=== PATIENT | female | born 1995 | race Two or more races ===

== ENCOUNTER 2019-01-18 23:35 | Emergency (ER) | payer OTHER ==
[~2019-01-18] VITALS: Ht 165.1 cm; Wt 76.2 kg
--- NOTE | 2019-01-18 23:40 | NUR ---
PT CHAI FROM STREET, FOUND LAYING ON FLOOR NEXT TO PUDDLE OF URINE. POSSIBLE ETOH. PT OPENS EYES TO PAINFUL STIMULI. VITAL SIGNS STABLE. SKIN WARM AND INTACT. NO ACUTE DISTRESS NOTED AT THIS TIME. PT PLACED IN GOWN AND ON MONITOR, WILL CONTINUE TO MONITOR.
[2019-01-19] LABS: BASOPHILS % (AUTO) 0.3 % (0.0-2.0); EOSINOPHILS % (AUTO) 1.1 % (0.0-6.0); HEMATOCRIT 41 % (33-45); HEMOGLOBIN 14.6 g/dL (11.5-14.8); LYMPHOCYTES % (AUTO) 34.5 % (20.0-44.0); MEAN CORPUSCULAR HGB CONC 35 g/dl (31.0-36.0); MEAN CORPUSCULAR VOLUME 95 fL (82-100); MONOCYTES # (AUTO) 0.7 /CMM (0.1-1.30); MONOCYTES % (AUTO) 7.6 % (2.0-12.0); NEUTROPHILS # (AUTO) 4.9 /CMM (1.8-8.9); NEUTROPHILS % (AUTO) 56.5 % (43.0-81.0); PLATELET COUNT (AUTO) 312 /CMM (150-450); RED BLOOD CELL COUNT(AUTO) 4.35 MIL/uL (4.0-5.2); WHITE BLOOD COUNT (AUTO) 8.6 K/uL (4.3-11.0)
[2019-01-19] MEDS ORDERED: IV NS 0.9% 1,000 ML BAG IV ONE
--- NOTE | 2019-01-19 | NUR ---
OCCASIONAL BABYSITTER AT BEDSIDE FOR BLOOD DRAW
--- NOTE | 2019-01-19 00:05 | NUR ---
URINE COLLECTED AND SENT TO LAB
[2019-01-19 00:07] LABS: CALCIUM, SERUM 7.8 mg/dL (8.5-10.1); CREATININE 0.6 mg/dL (0.6-1.3); POTASSIUM 3.2 mmol/L (3.5-5.1)
[2019-01-19 00:14] LABS: ALBUMIN 3.7 g/dL (3.4-5.0); BILIRUBIN,DIRECT 0.1 mg/dL (0.0-0.2); BILIRUBIN,TOTAL 0.4 mg/dL (0.2-1.0); SALICYLATE 1.4 mg/dL (2.8-20.0); TOTAL PROTEIN, SERUM 7.4 g/dL (6.4-8.2)
--- NOTE | 2019-01-19 00:40 | NUR ---
PT BROUGHT BY RADIOLOGY FOR CT
--- NOTE | 2019-01-19 01:30 | NUR ---
PT RESTING COMFORTABLY IN BED. VITAL SIGNS STABLE. NO ACUTE DISTRESS NOTED AT THIS TIME. STILL ON MONITOR, WILL CONTINUE TO MONITOR
[2019-01-19] MEDS ORDERED: IV PREMIX D5 1/2NS + KCL 1,000 ML IV ONE ×2 (01:55→03:05)
--- NOTE | 2019-01-19 02:30 | NUR ---
CT RESULTS NEG. PER MD ORDER, CERVICAL COLLAR DC
--- NOTE | 2019-01-19 03:16 | NUR ---
PT RESTING COMFORTABLY IN BED. OPENS EYES TO PAINFUL STIMULI. VITAL SIGNS STABLE. NO ACUTE DISTRESS NOTED AT THIS TIME. STILL ON MONITOR, WILL CONTINUE TO MONITOR
--- NOTE | 2019-01-19 04:23 | NUR ---
PT PULLED OUT IV. BLEEDING CONTROLLED WITH PRESSURE. DRESSING APPLIED. NEW IV INSERTED R HAND 20G. PT RESTING COMFORTABLY IN BED. OPENS EYES TO PAINFUL STIMULI. VITAL SIGNS STABLE. NO ACUTE DISTRESSED NOTED AT THIS TIME. WILL CONTINUE TO MONITOR
--- NOTE | 2019-01-19 06:45 | NUR ---
PT RESTING COMFORTABLY IN BED. VITAL SIGNS STABLE. NO ACUTE DISTRESS NOTED AT THIS TIME. STILL ON MONITOR, WILL CONTINUE TO MONITOR
[2019-01-19 07:57] VITALS: BP 123/86
--- NOTE | 2019-01-19 07:58 | NUR ---
PT PRESENTED UPON ASSESSING TO BE ALERT ORIENTED X 4 WANTS TO LEAVE. SPOKE WITH MD GILMORE WHO IS OKAY WITH PT LEAVING. VITAL SIGNS TAKEN (STABLE). PT GIVEN ACI AND EXPLAINED WHERE PT'S DOG WAS TAKEN . PT USED HER CELL TELEPHONE AND LOCATED POUND WANTS TO GO [employer] DOG UPON DISCHARGE. WHEN ASKED PT HOW SHE WILL GET HOME PT STATED "I WILL TAKE LYFT". PIV REMOVED WITH TIP INTACT GIVEN PANTS AND PT WAS PROPERLY DRESSED UPON DISCHARGE. PT WALKED WITH STEADY GAIT
== END 2019-01-19 08:03 | disposition home or self-care (01) ==
LOC: ER 23:37
DX: F10.129 Alcohol abuse with intoxication, unspecified (principal); R40.20 Unspecified coma; Z60.2 Problems related to living alone; Y90.9 Presence of alcohol in blood, level not specified
CPT/HCPCS: 36415; 51701; 70450; 71045; 72125; 80048; 80076; 80305; 80307; 80329; 84703; 85025; 93005; 96365; 96366; 99284; G0480; J3490; J7030; L0172